=== PATIENT | female | born 1990 | race Hispanic/Latino ===

== ENCOUNTER 2022-06-18 09:48 | Emergency (ER) | payer OTHER, SELFPAY ==
[2022-06-18] MEDS ORDERED: Fluorescein Opthalmic Strip ONE (10:16)
[2022-06-18] MEDS ORDERED: Tetracaine 0.5% PF 4 ML BOT ONE (10:16)
[2022-06-18] MEDS ORDERED: Boostrix 0.5 ML (Tdap) VIAL (>/=7 yrs of age) ONE (10:16)
== END 2022-06-18 10:43 | disposition home or self-care (01) ==
LOC: CSHERS 09:48
DX: S60.453A Superficial foreign body of left middle finger, initial encounter (principal); S05.00XA Injury of conjunctiva and corneal abrasion without foreign body, unspecified eye, initial encounter; S70.312A Abrasion, left thigh, initial encounter; W45.8XXA Other foreign body or object entering through skin, initial encounter
CPT/HCPCS: 90471; 90715; 99283